=== PATIENT | female | born 1995 | race Asian ===

== ENCOUNTER 2017-05-27 19:27 | Emergency (ER) | payer BC, OTHER ==
[~2017-05-27] VITALS: Ht 160 cm; Wt 93.3 kg
[2017-05-27 19:33] VITALS: BP 128/90; PULSE 74; TEMP 37; O2SAT 100; Ht 160 cm; Wt 93.3 kg
--- NOTE | 2017-05-27 20:06 | EMERGENCY ROOM VISIT NOTE ---
History First contact with patient: 19:38 Chief Complaint: TOE PAIN, INJURY Stated Complaint: TOE NAIL ON LF TOE,NAIL AVULSION History of Present Illness The patient is a 21 year old female who presents to the Emergency Room via private vehicle accompanied by 2 females with complaints of "toenail on left toe , nail avulsion". The patient states that 1 week ago, she was walking and fell down in [place]. She was evaluated in the emergency department in [place]. She states that the x-ray revealed no fractures. Unfortunate she had a nail avulsion, which was anatomically realigned. Since then she has been experiencing some pain. She notes pain with touching the toe. She denies any drainage or discharge from the wound. Her tetanus is up-to-date. She denies any fevers, chills. She denies any reinjury. Review of Systems A complete 6-point Review of Systems was discussed with the patient, with pertinent positives and negatives listed in the History of Present Illness. All remaining Review of Systems questions can be considered negative unless otherwise specified. Past Medical/Surgical History Toenail avulsion. Family History No pertinent. Social History Smoking Status: Never Smoker Patient is currently a [employer] student. Current/Historical Medications No Active Prescriptions or Reported Meds Physical Exam Vital Signs Date Time Temp Pulse Resp B/P (MAP) Pulse Ox O2 Delivery O2 Flow Rate FiO2 05/27/17 19:33 37.0 74 16 128/90 100 Room Air Physical Exam VITAL SIGNS - Vital signs and nursing notes were reviewed. Stable. GENERAL -21-year-old female appearing her stated age who is in no acute distress. Communicates well with provider and answers questions appropriately. SKIN - Without rashes. The left great toe reveals a slightly avulsed toenail, but is securely attached at the base. No drainage noted. There is a cream/ ointment in place. EXTREMITIES - No clubbing or peripheral cyanosis. No pretibial edema present. There is tenderness to palpation overlying the left great toenail. Examination reveals an ointment underneath the toenail without evidence of discharge or drainage. No signs of infection. There is no erythema, or edema. No bony tenderness to palpation. Full range of motion elicited. She is neurovascularly intact in this region. Medical Decision & Procedures Medical Decision Patient was seen and evaluated as above. She presents to us today status post injury to her left great toenail one week ago. She notes that she had x-rays at that time which were negative. She is here concerned because the pain has been persistent. There has been no drainage, fevers or chills. There is no erythema or edema. I suspect her pain is secondary to continued irritation of the toenail as it is loosely attached. I informed her that I do not believe that removing it at this time is appropriate, as it is protecting the underlying nailbed. I did rinse the Neosporin that was underneath this. She states that she's been applying Neosporin underneath the toenail area and on the sides each day. I politely asked to her to stop this, as it will likely Soldier infection. I then had the region dressed with a nonstick dressing, and Coban and help secure the toenail in place and to help prevent further irritation. She was also given a postop shoe to help protect the foot. I do not believe that re-x-ray as necessary. There has been no additional trauma. She was educated upon worrisome symptoms which to return, had questions answered prior to discharge, and was discharged home in good condition. She is to follow-up with [facility] regarding today's visit. In evaluation treatment this patient following differential diagnoses were entertained: Foot fracture, infection, cellulitis, ingrown toenail, prolonged pain secondary to toenail avulsion, among others. Impression Primary Impression: Toe pain Departure Information Dispostion Home / Self-Care Condition GOOD Prescriptions No Active Prescriptions or Reported Meds Referrals [facility] (PCP) Patient Instructions My [facility] Additional Instructions You have been treated in the Emergency Department for a toe pain/ nail pain. For pain control, you can use the following [id number]-[id number] medicines : - Regular strength (325mg/tab) Tylenol (acetaminophen) 2 tabs every 4-6 hours as needed. Do not exceed 12 tablets in a 24 hour period. Avoid taking more than 3 grams (3000 mg) of Tylenol per day. This includes any other sources of acetaminophen you may take on a regular basis. - Regular strength (200 mg/tab) Advil (ibuprofen) 1-2 tabs every 4-6 hours as needed. Do not exceed a dose of 3200 mg per day. If this is a recent injury (<24 hrs), ice can be applied to the area of pain for the first 3 days to help decrease pain and inflammation. Please watch for signs of infection to include redness, swelling or drainage from the wound. If these were to develop please return immediately. Please follow-up with [facility] within the next week. Return to the Emergency Department if your current symptoms worsen despite treatment course outlined above, or if you develop any of the following symptoms : intractable pain despite aforementioned treatment course or new onset of numbness or tingling of the foot. Please return to the emergency department with any new/concerning symptoms.
== END 2017-05-27 20:11 | disposition home or self-care (01) ==
LOC: C.EDB 19:29 → C.EDD 20:11
DX: M79.675 Pain in left toe(s) (principal)

== ENCOUNTER 2017-06-07 18:39 | Emergency (ER) | payer SELFPAY ==
[~2017-06-07] VITALS: Ht 160 cm; Wt 91.9 kg
[2017-06-07 19:00] VITALS: BP 128/89; PULSE 58; TEMP 36.8; O2SAT 96; Ht 160 cm; Wt 91.9 kg
--- NOTE | 2017-06-07 19:25 | EMERGENCY ROOM VISIT NOTE ---
History First contact with patient: 19:09 Chief Complaint: WOUND INFECTION Stated Complaint: FOLLOW UP FOR TOENAIL History of Present Illness The patient is a 21 year old female who presents to the Emergency Room for evaluation of her left great toenail. The patient states she sustained an injury earlier this month and was initially seen in an ED in [place]. She was told there were no fractures. She followed up here because the nail was lifting up slightly and was told to follow up with S. She states that she was not able to see them, so she returned here for a recheck. She is concerned because the nail has not fallen off yet. She has been keeping a bandage over the toenail to try to prevent infection. She denies any redness or swelling of the toe. She denies any pain. Review of Systems A complete 10 point review of systems was reviewed with the patient with pertinent positives and negatives as per history of present illness. All else were negative. Social History Smoking Status: Never Smoker Current/Historical Medications No Active Prescriptions or Reported Meds Physical Exam Vital Signs Date Time Temp Pulse Resp B/P (MAP) Pulse Ox O2 Delivery O2 Flow Rate FiO2 06/07/17 19:00 36.8 58 18 128/89 96 Room Air Physical Exam VITALS: Vitals are noted on the nurse's note and reviewed by myself. Vital signs stable. GENERAL: This is a 21-year-old female, in no acute distress, nondiaphoretic, well-developed well-nourished. EXTREMITIES: The left great toenail is slightly lifted up off the toe. There is mild ecchymosis underneath the toenail. There is no evidence of paronychia or felon. NEURO: Patient was alert and oriented to person place and time. Normal sensation to light and sharp touch. Medical Decision & Procedures Medical Decision The patient was evaluated as above. The toenail was lifting slightly up and will likely fall off within the next few weeks. I recommended that the patient wait until this fall off on its own. The patient was reassured. She was informed that she no longer needs to be applying antibiotic ointment or dressings to the toenail. There has been no further injury and I do not feel that any imaging is necessary at this time. The patient will follow-up with [facility] as needed. She verbalized understanding of my assessment and treatment plan and was discharged home in good condition. Medication Reconcilliation Current Medication List: was personally reviewed by me Blood Pressure Screening Patient's blood pressure: Normal blood pressure Impression Primary Impression: Encounter for wound re-check Departure Information Dispostion Home / Self-Care Condition GOOD Prescriptions No Active Prescriptions or Reported Meds Referrals [facility] (PCP) Patient Instructions My [facility] Additional Instructions For pain control, you can use the following kxci-onx-vdnwyww medicines (if >12 yo): - Regular strength (325mg/tab) Tylenol (acetaminophen) 2 tabs every 4-6 hours as needed. Do not exceed 12 tablets in a 24 hour period. Avoid taking more than 4 grams (4000 mg) of Tylenol per day. This includes any other sources of acetaminophen you may take on a regular basis. - Regular strength (200 mg/tab) Advil (ibuprofen) 1-2 tabs every 4-6 hours as needed. Do not exceed a dose of 3200 mg per day. Allow the nail to fall off on its own within the next few weeks. Follow-up with [facility] or return here for any further concerns.
== END 2017-06-07 19:30 | disposition home or self-care (01) ==
LOC: C.EDB 18:40 → C.EDD 19:30
DX: Z09 Encounter for follow-up examination after completed treatment for conditions other than malignant neoplasm (principal)